=== PATIENT | female | born 1975 | race Caucasian/White ===

== ENCOUNTER 2017-01-23 20:27 | Emergency (ER) | payer OTHER ==
[2017-01-23 21:03] LABS: BILIRUBIN NEGATIVE (NEGATIVE); BLOOD NEGATIVE Ery/uL (NEGATIVE); CLARITY CLEAR (CLEAR); COLOR YELLOW (YELLOW); GLUCOSE (U) NORMAL (NORMAL); KETONE (U) NEGATIVE (NEGATIVE); LEUKOCYTES NEGATIVE Leu/uL (NEGATIVE); NITRITE NEGATIVE (NEGATIVE); PROTEIN NEGATIVE (NEGATIVE); SPECIFIC GRAVITY 1.015 (1.001-1.030); UROBILINOGEN 0.2 mg/dL (0.2-1.0); pH 8.5 (5.0-9.0)
[2017-01-23 21:20] LABS: BASOPHIL 0.6 % (0-2); EOSINOPHIL 4.5 % (0-5); HCT 35.2 % (37.0-47.0); HGB 11.3 g/dl (12.5-16.0); LYMPHOCYTE 34.5 % (15-48); MCH 24.9 pg (25.0-31.0); MCHC 32.1 g/dL (32.0-36.0); MCV 77.7 fL (78.0-100.0); MONOCYTE 7.8 % (0-12); MPV 10.2 fL (6.0-9.5); NEUTROPHIL 52.6 % (41-80); PLT 286 K/uL (150-400); RBC 4.53 M/uL (4.20-5.40); RDW 16.5 % (11.5-14.0); WBC 8.5 K/uL (4.0-10.5)
[2017-01-23 21:36] LABS: ALBUMIN 3.6 g/dL (3.5-5.0); BILIRUBIN - TOTAL 0.2 mg/dL (0.1-1.0); CREATININE 0.8 mg/dL (0.5-1.0); GLOBULIN (CALCULATION) 2.7 g/dL (2.2-4.2); TOTAL PROTEIN 6.3 g/dL (6.4-8.3)
== END 2017-01-23 22:12 | disposition home or self-care (01) ==
LOC: FER 20:27
PROVIDERS: Emergency Medicine
DX: K46.9 Unspecified abdominal hernia without obstruction or gangrene (principal); F17.210 Nicotine dependence, cigarettes, uncomplicated; Z98.51 Tubal ligation status; Z98.890 Other specified postprocedural states
CPT/HCPCS: 36415; 80053; 81003; 83690; 85025